=== PATIENT | male | born 2000 | race African-American/Black ===

== ENCOUNTER 2022-03-01 22:06 | Emergency (ER) | payer MEDICAID ==
[~2022-03-01] VITALS: Ht 188 cm; Wt 80.6 kg
[2022-03-01 22:51] VITALS: BP 117/63
[2022-03-01] MEDS ORDERED: HYDROCODONE/ACETAMINOPHEN 5/325MG TABLET PO ONE (23:15)
== END 2022-03-02 01:35 | disposition left against medical advice (07) ==
LOC: ER 22:06
DX: M25.562 Pain in left knee (principal); X58.XXXA Exposure to other specified factors, initial encounter; Y93.67 Activity, basketball; Y92.9 Unspecified place or not applicable
CPT/HCPCS: 73562; 99283